=== PATIENT | female | born 1940 | race Caucasian/White ===

== ENCOUNTER → 2021-04-09 | Day surgery (SDC) | payer OTHER ==
[~2021-04-09] VITALS: Ht 157.5 cm; Wt 65.8 kg
[~2021-04-09] MED LIST: AMITRIPTYLINE H25 M4 PO; ASA81BEC PO; FLEXERIL PO; LINZESS145 MCG PO; MELOXICAM15 MG PO; OMEGA-3 FISH1200 MG PO; PROTONIX40 M2 PO; PROZAC20 M1 PO; ROSUVASTATIN CA10 MG PO; SYNTHROID50 MCG PO
[2021-04-09 11:08] VITALS: BP 130/56
--- NOTE | 2021-04-13 06:19 | O ---
[facility] [place] [address] OPERATIVE REPORT Name: MARILYNN COCHRAN Room #: REG [facility]..#: [id number] Admission: 04/09/21 Attend Phys: Ruben Bang MD Discharge: Date of : 42 Report #: [id number] THIS REPORT FOR: cc: Emery Angeles Bradford DO White, William L. 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 PROCEDURE: Excision of lesion of right upper lid with myocutaneous flap repair of defect, silicone lacrimal intubation, nasal surgical video endoscopy. SURGEON: Ruben Bang MD SEARCH MANAGER: None. ANESTHESIA: General. COMPLICATIONS: None. INDICATIONS FOR SURGERY: This pleasant 81-year-old woman has a cystic mass in her medial right upper lid that includes her punctum. The lesion extended both medially and lateral to the punctum on the upper lid. The lesion is inducing a nasolacrimal duct obstruction. 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 Informed consent was obtained to include but not limited to the potential risk for loss of vision, bleeding, infection, failure to improve the problem, the potential need for further surgery or treatment. DESCRIPTION OF PROCEDURE: The patient was taken to the operating room where general anesthesia was administered. The right upper lid medial canthal area was then anesthetized with Xylocaine with epinephrine mixed with Marcaine and Wydase. The lateral wall of the nose was then anesthetized with the same anesthetic mixture. The right side of the nose was then packed with an Afrin-soaked cottonoid. The patient was subsequently prepped and draped in the usual sterile fashion. The right upper lid was then everted and an incision made around the base of the [address] [address] OPERATIVE REPORT Name: MARILYNN COCHRAN Room #: [place] [facility] [place].R.#: [id number] Admission: 04/09/21 Attend Phys: Ruben Bang MD Discharge: Date of : 42 Report #: [id number] lesion 360 degrees. This extended both medial to and lateral to the punctum as the punctum was included in the lesion. The dissection was then carried down on to the tarsal plate keeping the lesion intact. Its capsule was not ruptured throughout the dissection. The lesion was then passed off the field for permanent section analysis. The superior canalicular system was then dilated and the punctum itself including the punctal ring was still present on the tissue remaining that was not excised. This was dilated and a Do tube passed through the superior canaliculus down the nasolacrimal duct. The cottonoids were removed from the nose and the video endoscope used to visualize the Do tube entering the nose and the inferior meatus under the inferior turbinate. The Do tube was then grabbed with a Do hook and drawn out the nares atraumatically. The inferior punctum was then dilated and the Do tube passed and retrieved transnasally with the video endoscope in a similar fashion. The tube was then secured to itself with 3 square throws and subsequently to the lateral wall of the nose with one 5-0 Prolene suture. A myocutaneous flap was then developed superiorly and rotated inferiorly to correct the defect. Hemostasis was then re-achieved. The flap was then secured with interrupted 6-0 plain gut sutures with the knots drawn away from the eyelid margin to reduce the chances of postoperative ocular irritation. The wound was then cleaned and dressed with erythromycin ophthalmic ointment. The patient subsequently transported to the recovery area having tolerated the procedures well with no anesthetic or operative complications being noted. <ELECTRONICALLY SIGNED> By: Ruben Bang MD 04/13/21 0619 [id number] Ruben Bang MD /nt
--- NOTE | 2021-04-13 18:06 | PATH ---
[facility] [place] [address] PATHOLOGY RPT PROCEDURE Name: MARILYNN COCHRAN Room #: REG [facility] [place] M.R.#: [id number] Admission: 04/09/21 Date of : 42 Discharge: Report #: [id number] Path Case #: [id number] [facility] Accession Number: [id number] . 01 Material submitted: . lid - RIGHT UPPER LID LESION. Modifiers: right, upper . 01 Clinical history: . EXCISION LESION EYE ENDOSCOPY OTHER BENIGN NEOPLAS OF SKIN OF RIGHT UPPER EYELID INCLUDING CANTHUS, ACQUIRED STENOSIS OF RIGHT NASOLACRIMAL DUCT . 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 - There is no evidence of atypia or malignancy. (BINDU:geo; 04/13/2021) QTP 04/13/2021 1659 Local . 01 Electronically signed: . Andrea Benitez MD, Pathologist NPI- [id number] . 01 Gross description: . Received in formalin labeled "Arnulfo Finney right upper lid lesion" is a lesional shave biopsy measuring 0.6 x 0.5 x 0.3 cm. The margin is inked and the specimen is bisected and submitted in A1. ([facility]; 04/10/2021) . . . . . GZA/GZA 04/10/2021 1843 Local . 01 Pathologist provided ICD-10: D23.111 . 01 CPT . 197921 Specimen Comment: A courtesy copy of this report has been sent to [phone] Specimen Comment: [phone] Specimen Comment: Report sent to / DR AN Performed at: 01 [place] [address] PATHOLOGY RPT PROCEDURE Name: MARILYNN COCHRAN [id number] Admission: 04/09/21 Date of : 42 Discharge: Report #: [id number] Path Case #: [id number] [address] [id number] MD Andrea Benitez MD Phone: [phone]
== END | disposition home or self-care (01) ==
LOC: OR 09:26
PROVIDERS: ATTEND Ophthalmology
DX: D23.111 Other benign neoplasm of skin of right upper eyelid, including canthus (principal); H04.551 Acquired stenosis of right nasolacrimal duct; F32.9 Major depressive disorder, single episode, unspecified; F41.9 Anxiety disorder, unspecified; E78.5 Hyperlipidemia, unspecified; K21.9 Gastro-esophageal reflux disease without esophagitis; Z98.890 Other specified postprocedural states; Z79.899 Other long term (current) drug therapy; Z96.643 Presence of artificial hip joint, bilateral; Z98.41 Cataract extraction status, right eye; Z98.42 Cataract extraction status, left eye; Z20.822 Contact with and (suspected) exposure to COVID-19
CPT/HCPCS: 50010; 50101; 50386; 50398; 51636; 51777; 56528; 56531; 62110; 62900; 64037; 70005